=== PATIENT | female | born 1995 ===

== ENCOUNTER 2019-02-19 23:54 | Inpatient (IN) | payer OTHER ==
[2019-02-20] MEDS ORDERED: Butorphanol 1 MG/ML SDV IVPUSH PRN (01:56)
[2019-02-20] MEDS ORDERED: Methylergonovine 0.2 MG/1 ML Amp IM PRN (01:56)
[2019-02-20] MEDS ORDERED: Sodium Chloride 0.9% 10 ML Syringe FLUSH PRN (01:56)
[2019-02-20] MEDS ORDERED: Nalbuphine 10 MG/1 ML Vial IVPUSH PRN (01:56)
[2019-02-20] MEDS ORDERED: Carboprost Tromethamine 250 MCG/1 ML Amp IM PRN (01:56)
[2019-02-20] MEDS ORDERED: Ondansetron 4 MG/2 ML SDV IVPUSH PRN (01:56)
[2019-02-20] MEDS ORDERED: Lidocaine 1% 50 ML MDV INJECT PRN (01:56)
[2019-02-20] MEDS ORDERED: Misoprostol 200 MCG Tab PO PRN (01:56)
[2019-02-20] MEDS ORDERED: Water For Irrigation,Sterile 1,000 ML Container IRR PRN (01:56)
[2019-02-20] MEDS ORDERED: Tranexamic Acid 1,000 MG in Sodium Chloride 0.9% 100 ML IV PRN (01:56)
[2019-02-20] MEDS ORDERED: Sodium Chloride 0.9% 2.5 ML Syringe FLUSH PRN (01:56)
[2019-02-20] MEDS ORDERED: Terbutaline 1 MG/ML SDV SUBCUT PRN (01:56)
[2019-02-20] MEDS ORDERED: Sodium Chloride 0.9% 10 ML SDV IV PRN (01:56)
[2019-02-20] MEDS ORDERED: Oxytocin/0.9 % Sodium Chloride 30 UNIT/500 ML BAG IV SCH ×2 (02:00)
[2019-02-20] MEDS: Lactated Ringers 1,000 ML IV SCH ×3 (02:46→08:19)
[2019-02-20] MEDS ORDERED: Ropivacaine HCl/PF 100 ML ONE (04:21)
--- NOTE | 2019-02-20 04:51 | PCM.PREANE ---
Preanesthetic Assessment - Anesthesia/Transfusion/Family Hx Anesthesia History: Prior Anesthesia Without Reaction Family History of Anesthesia Reaction: No Transfusion History: Unknown - Review of Systems General: No Symptoms Pulmonary: No Symptoms Cardiovascular: No Symptoms Gastrointestinal: No Symptoms Neurological: No Symptoms - Physical Assessment ASA Class: 2 Mental Status: Alert & Oriented x3 Dentition: Reports: Normal Dentition ROM/Head Extension: Full Lungs: Clear to Auscultation Cardiovascular: Regular Rate - Lab Values: Laboratory Last Values WBC 11.57 K/uL (4.0-11.0) H 02/20/19 02:30 RBC 4.64 M/uL (4.30-5.90) 02/20/19 02:30 Hgb 11.3 g/dL (12.0-16.0) L 02/20/19 02:30 Hct 35.9 % (36.0-46.0) L 02/20/19 02:30 MCV 77.4 fL (80.0-98.0) L 02/20/19 02:30 MCH 24.4 pg (27.0-32.0) L 02/20/19 02:30 MCHC 31.5 g/dL (31.0-37.0) 02/20/19 02:30 RDW Std Deviation 46.2 fl (28.0-62.0) 02/20/19 02:30 RDW Coeff of Purnima 16 % (11.0-15.0) H 02/20/19 02:30 Plt Count 278 K/uL (150-400) 02/20/19 02:30 MPV 11.00 fL (7.40-12.00) 02/20/19 02:30 Nucleated RBC % 0.0 /100WBC 02/20/19 02:30 Nucleated RBCs # 0 K/uL 02/20/19 02:30 Membrane Rupture POSITIVE 02/20/19 00:15 Blood Type AB POSITIVE 02/20/19 02:30 Antibody Screen NEGATIVE 02/20/19 02:30 - Allergies Allergies/Adverse Reactions: Allergies Allergy/AdvReac Type Severity Reaction Status Date / Time No Known Allergies Allergy Verified 01/06/19 12:35 - Acknowledgements Anesthesia Type Planned: Epidural Pt an Appropriate Candidate for the Planned Anesthesia: Yes Alternatives and Risks of Anesthesia Discussed w Pt/Guardian: Yes Pt/Guardian Understands and Agrees with Anesthesia Plan: Yes PreAnesthesia Questionnaire - CURRENT (IN HOUSE) MEDS Current Meds: Current Medications Butorphanol Tartrate (Stadol) 1 mg IVPUSH Q1H PRN PRN Reason: Pain Carboprost Tromethamine (Hemabate Ds) 250 mcg IM ASDIRECTED PRN PRN Reason: Post Hemorrhage Tranexamic Acid 1,000 mg/ (Sodium Chloride) 110 mls @ 660 mls/hr IV ONETIME PRN PRN Reason: Bleeding Lactated Ringer's (Ringers, Lactated) 1,000 mls @ 150 mls/hr IV ASDIRECTED THALIA Last Admin: 02/20/19 04:07 Dose: 999 mls/hr Oxytocin/Sodium Chloride (Oxytocin 30 Unit/500 Ml-Ns) 30 unit in 500 mls @ 999 mls/hr IV TITRATE THALIA Oxytocin/Sodium Chloride (Oxytocin 30 Unit/500 Ml-Ns) 30 unit in 500 mls @ 2 mls/hr IV TITRATE THALIA; Protocol Last Admin: 02/20/19 02:47 Dose: 2 munits/min, 2 mls/hr Lidocaine HCl (Xylocaine 1%) 50 ml INJECT ONETIME PRN PRN Reason: Laceration repair Methylergonovine Maleate (Methergine) 0.2 mg IM ASDIRECTED PRN PRN Reason: Post Hemorrhage Misoprostol (Cytotec) 200 mcg PO ONETIME PRN PRN Reason: Post Hemorrhage Nalbuphine HCl (Nubain) 10 mg IVPUSH Q1H PRN PRN Reason: Pain (severe 7-10) Ondansetron HCl (Zofran) 4 mg IVPUSH Q6H PRN PRN Reason: Nausea/Vomiting Sodium Chloride (Saline Flush) 10 ml FLUSH ASDIRECTED PRN PRN Reason: Keep Vein Open Sodium Chloride (Saline Flush) 2.5 ml FLUSH ASDIRECTED PRN PRN Reason: Keep Vein Open Sodium Chloride (Normal Saline) 10 ml IV ASDIRECTED PRN PRN Reason: IV Use Sterile Water (Sterile Water For Irrigation) 1,000 ml IRR ASDIRECTED PRN PRN Reason: delivery Terbutaline Sulfate (Brethine) 0.25 mg SUBCUT ASDIRECTED PRN PRN Reason: Tacysystole Discontinued Medications Ropivacaine (Naropin 0.2%) Confirm Administered Dose 100 mls @ as directed .ROUTE .STK-MED ONE Stop: 02/20/19 04:22
--- NOTE | 2019-02-20 04:53 | PCM.POSTAN ---
POST ANESTHESIA ASSESSMENT - RESPIRATORY Respiratory Status: Respiratory Rate WNL - CARDIOVASCULAR CV Status: Pulse Rate WNL - GASTROINTESTINAL GI Status: No Symptoms - POST OP HYDRATION Hydration Status: Adequate & Stable - OBSERVATIONS Free Text/Narrative:: Epidural patient tolerated procedure without incident. Patient stable.
[2019-02-20] MEDS ORDERED: Bisacodyl 10 MG Supp RECTAL PRN (09:04)
[2019-02-20] MEDS ORDERED: Benzocaine/Menthol 20%-0.5% Spray 78 GM Cannister TOP PRN (09:04)
[2019-02-20] MEDS ORDERED: Lanolin 100% Cream 7 GM Tube TOP PRN (09:04)
[2019-02-20] MEDS ORDERED: Ibuprofen 400 MG Tab PO PRN (09:04)
[2019-02-20] MEDS ORDERED: Docusate Sodium 100 MG Cap PO PRN (09:04)
[2019-02-20] MEDS ORDERED: Witch Hazel Medicated Pads 40/Jar TOP PRN (09:04)
--- NOTE | 2019-02-20 11:55 | OR ---
SURGEON: Chaz Hooks MD DATE OF PROCEDURE: 02/20/2019 INDICATION: The patient is a 24-year-old, G3, P1-0-1-1, at 38 weeks 5 days who presented with spontaneous rupture of membranes confirmed by [facility]. She was augmented with Pitocin and received an epidural. She progressed to fully dilated. Category 1 tracing. PREOPERATIVE DIAGNOSES: 1. Intrauterine at 38 weeks and 5 days. 2. Active second stage of labor. POSTOPERATIVE DIAGNOSES: 1. Intrauterine at 38 weeks and 5 days. 2. Active second stage of labor. PROCEDURE: Normal spontaneous vaginal delivery. PRIMARY SURGEON: Chaz Hooks MD. ANESTHESIA: Epidural. ESTIMATED BLOOD LOSS: 200 mL. OPERATIVE FINDINGS: Storey intrauterine in cephalic presentation. Female fetus, score of 8 and 9, weight is 3800g. DESCRIPTION OF PROCEDURE: The patient progressed 10/100/+2 and pushed with contractions for approximately 5 minutes. Category 1 tracing with early decelerations. The head was delivered over intact perineum, restituted ROT. No nuchal cord. The anterior shoulder was delivered easily followed by the posterior shoulder and the remaining body. Baby was crying, pink and moved all extremities immediately after delivery. The baby was placed on the maternal chest and evaluated by nursery team. Umbilical cord was clamped and cut after 60 seconds of no longer pulsating. The cord gases were obtained. The placenta was delivered with gentle traction on the umbilical cord. The fundus was firm and below the umbilicus, bleeding was minimal. No lacerations were noted. care instructions were provided. MEERA / TIARA /[id number] MTDD
[2019-02-20] MEDS: Acetaminophen 500 MG Tab PO PRN ×3 (12:06→21:18)
--- NOTE | 2019-02-20 12:11 | PCM48HPAN ---
Post Anesthesia Note - EVALUATION WITHIN 48HRS OF ANESTHETIC Vital Signs in Normal Range: Yes Patient Participated in Evaluation: Yes Respiratory Function Stable: Yes Airway Patent: Yes Cardiovascular Function Stable: Yes Hydration Status Stable: Yes Pain Control Satisfactory: Yes Nausea and Vomiting Control Satisfactory: Yes Mental Status Recovered: Yes - COMMENTS/OBSERVATIONS Free Text/Narrative:: Doing well. No problems post.
[2019-02-20] MEDS: Ibuprofen 800 MG Tab PO PRN ×2 (13:27→20:16)
[2019-02-21] MEDS: Ibuprofen 800 MG Tab PO PRN (06:35)
[2019-02-21] MEDS: Acetaminophen 500 MG Tab PO PRN (06:36)
[2019-02-21] MEDS ORDERED: Ferrous Sulfate 325 MG Tab PO SCH (12:00)
--- NOTE | 2019-02-21 12:24 | PCM.PNPP ---
- General Info Date of Service: 02/21/19 Admission Dx/Problem (Free Text): Feeling well, no issues Functional Status: Reports: Pain Controlled, Tolerating Diet, Ambulating, Urinating - Review of Systems General: Reports: No Symptoms HEENT: Reports: No Symptoms Pulmonary: Reports: No Symptoms Cardiovascular: Reports: No Symptoms Gastrointestinal: Reports: No Symptoms Genitourinary: Reports: No Symptoms Musculoskeletal: Reports: No Symptoms Skin: Reports: No Symptoms Neurological: Reports: No Symptoms Psychiatric: Reports: No Symptoms - Patient Data Vital Signs - Most Recent: Last Vital Signs Temp 36.8 C 02/21/19 04:55 Pulse 76 02/21/19 04:55 Resp 17 02/21/19 04:55 BP 113/71 02/21/19 04:55 Pulse Ox 97 02/21/19 04:55 Weight - Most Recent: 227 lb Lab Results - Last 24 Hours: Laboratory Results - last 24 hr 02/21/19 Range/Units 06:09 Hgb 10.3 L (12.0-16.0) g/dL Hct 33.1 L (36.0-46.0) % Med Orders - Current: Current Medications Acetaminophen (Tylenol Extra Strength) 500 mg PO Q4H PRN PRN Reason: Pain Last Admin: 02/21/19 06:36 Dose: 500 mg Acetaminophen (Tylenol Extra Strength) 1,000 mg PO Q4H PRN PRN Reason: Pain Last Admin: 02/20/19 21:18 Dose: 1,000 mg Benzocaine/Menthol (Dermoplast Pain Relief 20%-0.5% Baring) 78 gm TOP ASDIRECTED PRN PRN Reason: Perineal Comfort Measure Last Admin: 02/20/19 13:28 Dose: 1 can Bisacodyl (Dulcolax) 10 mg RECTAL ONETIME PRN PRN Reason: Constipation Butorphanol Tartrate (Stadol) 1 mg IVPUSH Q1H PRN PRN Reason: Pain Carboprost Tromethamine (Hemabate Ds) 250 mcg IM ASDIRECTED PRN PRN Reason: Post Hemorrhage Docusate Sodium (Colace) 100 mg PO BID PRN PRN Reason: Constipation Last Admin: 02/20/19 21:18 Dose: 100 mg Emollient Ointment (Lansinoh Hpa) 0 gm TOP ASDIRECTED PRN PRN Reason: Sore Nipples Ferrous Sulfate (Ferrous Sulfate) 325 mg PO BIDMEALS [facility] Tranexamic Acid 1,000 mg/ (Sodium Chloride) 110 mls @ 660 mls/hr IV ONETIME PRN PRN Reason: Bleeding Lactated Ringer's (Ringers, Lactated) 1,000 mls @ 150 mls/hr IV ASDIRECTED THALIA Last Infusion: 02/20/19 09:15 Dose: 0 mls/hr Oxytocin/Sodium Chloride (Oxytocin 30 Unit/500 Ml-Ns) 30 unit in 500 mls @ 999 mls/hr IV TITRATE THALIA Oxytocin/Sodium Chloride (Oxytocin 30 Unit/500 Ml-Ns) 30 unit in 500 mls @ 2 mls/hr IV TITRATE THALIA; Protocol Last Titration: 02/20/19 08:54 Dose: 999 munits/min, 999 mls/hr Ibuprofen (Motrin) 400 mg PO Q4H PRN PRN Reason: Pain Ibuprofen (Motrin) 800 mg PO Q6H PRN PRN Reason: Pain Last Admin: 02/21/19 06:35 Dose: 800 mg Lidocaine HCl (Xylocaine 1%) 50 ml INJECT ONETIME PRN PRN Reason: Laceration repair Methylergonovine Maleate (Methergine) 0.2 mg IM ASDIRECTED PRN PRN Reason: Post Hemorrhage Misoprostol (Cytotec) 200 mcg PO ONETIME PRN PRN Reason: Post Hemorrhage Nalbuphine HCl (Nubain) 10 mg IVPUSH Q1H PRN PRN Reason: Pain (severe 7-10) Ondansetron HCl (Zofran) 4 mg IVPUSH Q6H PRN PRN Reason: Nausea/Vomiting Sodium Chloride (Saline Flush) 10 ml FLUSH ASDIRECTED PRN PRN Reason: Keep Vein Open Sodium Chloride (Saline Flush) 2.5 ml FLUSH ASDIRECTED PRN PRN Reason: Keep Vein Open Sodium Chloride (Normal Saline) 10 ml IV ASDIRECTED PRN PRN Reason: IV Use Sterile Water (Sterile Water For Irrigation) 1,000 ml IRR ASDIRECTED PRN PRN Reason: delivery Terbutaline Sulfate (Brethine) 0.25 mg SUBCUT ASDIRECTED PRN PRN Reason: Tacysystole Witch Mary (Tucks) 1 pad TOP ASDIRECTED PRN PRN Reason: comfort care Last Admin: 02/20/19 13:27 Dose: 1 tub Discontinued Medications Ropivacaine (Naropin 0.2%) Confirm Administered Dose 100 mls @ as directed .ROUTE .STK-MED ONE Stop: 02/20/19 04:22 Last Admin: 02/20/19 16:59 Dose: Not Given - Interaction Infant Disposition, : Schuyler at Bedside Infant Interaction: Holding Feeding: Bottle Fed Infant Support Person: Significant Other - Recovery Exam Fundal Tone: Firm Fundal Level: 2 Fingerbreadths Below Umbilicus Fundal Placement: Midline Lochia Amount: Scant Lochia Color: Rubra/Red Perineum Description: Intact, Minimal Bruising/Swelling, Edematous Episiotomy/Laceration: None Bladder Status: Voiding Urinary Elimination: Voided - Exam General: Alert, Oriented, No Acute Distress HEENT: Pupils Equal, Pupils Reactive Neck: Supple, Trachea Midline Lungs: Normal Respiratory Effort GI/Abdominal Exam: Soft, Non-Tender, No Distention Extremities: Normal Inspection, Non-Tender, No Pedal Edema Skin: Warm, Dry, Intact Psy/Mental Status: Alert, Normal Affect, Normal Mood - Problem List Review Problem List Initiated/Reviewed/Updated: Yes - My Orders Last 24 Hours: My Active Orders 02/21/19 11:40 Ready for Discharge [RC] PER UNIT ROUTINE 02/21/19 12:00 Ferrous Sulfate 325 mg PO BIDMEALS - Assessment Assessment:: 24yo PPD1 s/p at 38w5d, stable and doing well -VSS - Hgb 10.3 this AM, bleeding minimal, no s/s of anemia, will start iron supplements - ambulate - regular diet - minimal pain Stable for discharge home today.
== END 2019-02-21 13:37 | disposition home or self-care (01) | DRG 807 ==
LOC: MW.OBCHECK 23:54 → MW.OB 23:56 → MW.OBCHECK 02-20 05:41 → OBSVTOIN 02-20 09:04 → MW.OB 02-20 12:38
PROVIDERS: ADMIT Obstetrics & Gynecology; ATTEND Obstetrics & Gynecology
PROC: 10E0XZZ Delivery of Products of Conception, External Approach (ICD-10-PCS; principal; 2019-02-20)
DX: O76 Abnormality in fetal heart rate and rhythm complicating labor and delivery (principal); Z37.0 Single live birth; Z3A.38 38 weeks gestation of pregnancy
CPT/HCPCS: 36415; 51702; 59025; 59409; 84112; 85014; 85018; 85027; 86850; 86900; 86901; A9270-GY; J2590; J7120

== ENCOUNTER 2024-11-07 01:45 | Emergency (ER) | payer SELFPAY ==
[2024-11-07] MEDS: Sodium Chloride 0.9% 1,000 ML IV SCH (02:49)
[2024-11-07] MEDS: Ondansetron 4 MG/2 ML SDV IVPUSH ONE ×2 (02:49→04:11)
[2024-11-07 03:21] LABS: CALCIUM 8.2 mg/dL (8.5-10.1); CARBON DIOXIDE,CO2 26.1 mmol/L (21.0-32.0); CREATININE 0.8 mg/dL (0.6-1.0); EST CRCL DRUG DOSING (CG) 102.72 mL/min; POTASSIUM,K 3.7 mmol/L (3.5-5.1)
[2024-11-07] MEDS: Calcium Carbonate 500 MG Tab.Chew PO ONE (04:11)
== END 2024-11-07 04:17 | disposition home or self-care (01) ==
LOC: MW.ED 01:45
DX: T38.3X1A Poisoning by insulin and oral hypoglycemic [antidiabetic] drugs, accidental (unintentional), initial encounter (principal); R11.2 Nausea with vomiting, unspecified
CPT/HCPCS: 36415; 80048; 96361; 96374; 96376; 99284; A9270; J2405; J7030; 99283